=== PATIENT | female | born 2005 | race Caucasian/White ===

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

== ENCOUNTER 2025-07-01 04:20 | Emergency (ER) | payer BC, SELFPAY ==
[2025-07-01] VITALS (8 sets, daily range): BP systolic 109–141; BP diastolic 67–93; PULSE 61–78; RESP 16–23; TEMP 36.6–36.8; O2SAT 98–100
--- NOTE | ~2025-07-01 | CT_ITS ---
EXAMINATION: CT brain wo con COMPARISON: None HISTORY: headahce, numbness TECHNIQUE: Axial images were obtained through the brain without IV contrast. CT scan performed using dose optimization techniques including the following automated exposure control; adjustment of mA and/or kV; use of iterative reconstruction technique. Automatic exposure control was used to reduce radiation dose. Permanent radiation dose record is archived to PACS. FINDINGS: No acute infarct or parenchymal hemorrhage. No abnormal mass or mass effect. No midline shift. No extra-axial fluid collections. No hydrocephalus. . Mastoid air cells unremarkable. Sinuses and orbits unremarkable. No acute fracture. No significant facial or scalp soft tissue swelling evident. No radiopaque foreign body is seen. Impression: 1.No acute intracranial abnormality. Reviewed, dictated and finalized at location A. Impression: 1.No acute intracranial abnormality.
[2025-07-01 04:49] LABS: Hematocrit 44.5 % (37.0-47.0); Hemoglobin 14.7 g/dL (12.0-15.0); Immature Granulocyte Percent A 0.2 % (0-0.5); Lymphocytes Absolute Auto 3.05 K/mm3 (0.9-3.2); Mean Corpuscular HGB Conc 33.0 g/dl (32-36); Mean Corpuscular Hemoglobin 29.5 pg (26-34); Mean Corpuscular Volume 89.4 fl (80-100); Nucleated Red Blood Cells Absolute Auto 0.000 K/mm3 (0.0-0.012); Nucleated Red Blood Cells Perc 0.0 % (0.0-0.2); Platelet Count Result 300 k/mm3 (150-375); Red Blood Count 4.98 M/mm3 (4.2-5.4); White Blood Count 8.8 K/mm3 (4.5-10.0)
[2025-07-01 04:59] LABS: SPREG INTERNAL CONTROL Positive; Serum Qual hCG Negative
[2025-07-01 05:00] LABS: Alanine Aminotransferase 17 U/L (6-35); Albumin Level 4.9 g/dL (3.5-5.1); Alkaline Phosphatase 108 U/L (38-126); Anion Gap 11 mmol/L (4-12); Aspartate Amino Transferase 31 U/L (14-36); Bilirubin,Total 0.8 mg/dL (0.2-1.3); Blood Urea Nitrogen 22 mg/dL (7-17); Calcium 9.7 mg/dL (8.4-10.2); Carbon Dioxide 26 mmol/L (22-30); Chloride 104 mmol/L (98-107); Estimated CRCL calculation 76 ml/min; Estimated Glomerular Filt Rate > 60; Glucose 82 mg/dL (65-110); Magnesium 2.1 mg/dL (1.6-2.3); Potassium 3.7 mmol/L (3.4-5.0); Sodium 141 mmol/L (137-145); Total Protein 9.0 g/dL (6.3-8.2)
--- OUTSIDE RECORDS SUMMARY | 2025-07-01 05:24 | XMS_ITS | Clinical Summary ---
Author Organization [facility] Address [address] [place] [address] Care Team Providers Care Sheet Metal Helper Name Role Phone Alyssa Kim MD Primary Care Provider [phone] Allergies No known active allergies Medications rimegepant 75 mg Dissolve 1 tablet (75 mg total) in mouth 01/28/2022 Active cholecalciferol 2,000 unit Tab Take 1 tablet (2,000 Units total) by mouth once daily Active Active Problems Problem Noted Date Diagnosed Date PCOS (polycystic ovarian syndrome) 03/21/2024 Migraine with aura 04/14/2023 Palpitations 06/30/2018 Trivial Aortic insufficiency 06/30/2018 Family History Medical History Relation Name Comments Heart defect Cousin Relation Name Status Comments Cousin Social History Tobacco Use Types Packs/Day Years Used Date Smoking Tobacco: Never Smokeless Tobacco: Never Tobacco Cessation:Counseling Given: Not Answered Alcohol Use Standard Drinks/Week Comments Not Currently 0 (1 standard drink = 0.6 oz pur e alcohol) Depression Answer Date Recorded PHQ-9 Score 2 04/14/2023 Comments No Sex and Gender Information Value Date Recorded Sex Assigned at Female 04/20/2023 9:12 AM EDT Legal Sex Female 6:00 AM EDT Gender Identity Female 04/20/2023 9:12 AM EDT Sexual Orientation Straight 04/20/2023 9: 12 AM EDT Primary [place] Affiliation NON-FINNISH (AND NON-FED STEFAN GNIZED FINNISH) Last Filed Vital Signs Vital Sign Reading Time Taken Comments Blood Pressure 130/74 03/18/2024 8:45 AM EDT Pulse 60 05/14/2023 1:34 PM EDT Temperature 36.3 C (97.4 F) 08/31/2020 11:18 AM EST Respiratory Rate 16 11/12/2021 1:45 PM EST Oxygen Saturation 100% 11/12/2021 1:45 PM EST Inhaled Oxygen Concentration - - Weight 59.9 kg (132 lb) 03/18/2024 8:45 AM EDT Height 157.5 cm (5' 2) 03/18/2024 8:45 AM EDT Body Mass Index 24.14 03/18/2024 8:45 AM EDT Plan of Treatment Health Maintenance Due Date Last Done Comments HEPATITIS C SCREENING 2004 HIV SCREENING One Time Screening Age 18-64 2004 2-4 week WCE 2004 2 month WCE 2004 4 month WCE 2004 6 month WCE 2004 9 month WCE 2004 12 month WCE 2004 15 month WCE 04/01/2005 18 month WCE 07/02/2005 24 month WCE 12/30/2005 30 month WCE 07/02/2006 3 year WCE 12/30/2006 4 year WCE 12/31/2007 5 year WCE 12/30/2008 6 year WCE 12/30/2009 7 year WCE 12/30/2010 8 year WCE 12/02/2011 9 year WCE 12/02/2012 10 year WCE 12/02/2013 11 year WCE 12/02/2014 12 year WCE 12/02/2015 13 year WCE 12/02/2016 14 year WCE 12/02/2017 15 year WCE 12/02/2018 CHLAMYDIA SCREENING 01/30/2019 HPV VACCINES (1 - 3-dose series) 01/30/2019 16 year WCE 12/02/2019 17 year WCE 12/02/2020 17 year Well Adult 12/02/2021 19 year Well Adult 12/02/2022 20 year Well Adult 12/02/2023 Depression Screening Yearly Rolling Year 04/14/2024 04/14/2023 COVID-19 Vaccine ( season) 2024 02/14/2021, 01/24/2021 20 year Well Adult 12/02/2024 Well Exam to 20y 12/02/2024 PAP SMEAR 01/30/2025 DTAP/TDAP/TD VACCINES (7 - Td or Tdap) 02/13/2025 02/13/2015, 02/14/2008, 05/12/2005, Additional history exists INFLUENZA VACCINE SEQ (#1) 07/19/202507/24, 09/13/2022, 09/11/2021, Additional history exists PNEUMOCOCCAL AGE 0-49 Aged Out 05/12/2005 , 2004, 2004, Additional history exists No longer eligible based on patient's age to complete this topic Insurance [employer] [place] Care Teams Sheet Metal Helper Relationship Specialty Start Date End Date Alyssa Kim MD [id number] [place] [address] PCP - General Pediatrics 08/16/13
[2025-07-01] MEDS: ACETAMINOPHEN 500 MG TABLET 1000 MG PO (05:36)
[2025-07-01] MEDS: SODIUM CHLORIDE 0.9% IV 1,000 ML 999 ML IV CONT (05:36)
[2025-07-01] MEDS: METOCLOPRAMIDE HCL INJ 10 MG/2 ML VIAL IV PUSH (05:37)
--- NOTE | 2025-07-01 06:33 | ED_ITS ---
HPI - General Adult General Chief complaint: Neuro Symptoms/Deficit <Patrick Velázquez MD - Last Filed: 07/01/25 07:07> Stated complaint: stroke like symptoms <Patrick Velázquez MD - Last Filed: 07/01/25 07:07> Time Seen by Provider: 07/01/25 04:28 <Patrick Velázquez MD - Last Filed: 07/01/25 07:07> History of Present Illness HPI narrative: Patient is a 20-year-old female who presents emergency department this evening complaining of paresthesias to her left extending from her hand to her left elbow not following any neurological distribution. Patient admits that she does have a history of migraines and does take Imitrex for her migraine headaches. States that her headache started at 8:00 p.m. and normally with her medications at home they usually resolve within 2 hours but states that this headache persisted. States that she also felt some tingling to her face but otherwise denies any focal weakness, numbness and tingling. No sudden worse headache of her life sensation, the headache did progressively get worse throughout the night within the last 8 hours. <Patrick Velázquez MD - Last Filed: 07/01/25 07:07> Related Data Allergies/adverse reactions: Allergies Allergy/AdvReac Type Severity Reaction Status Date / Time sumatriptan (From Imitrex) Allergy Unknown Unknown Verified 08/18/23 01:09 <Patrick Velázquez MD - Last Filed: 07/01/25 07:07> Review of Systems 2 Review of Systems: All systems are reviewed and are negative unless stated otherwise in the HPI. <Patrick Velázquez MD - Last Filed: 07/01/25 07:07> Exam 2 Narrative: General: Alert, awake, afebrile, in no acute distress. HEENT: PERRL, no rhinorrhea, no post nasal drip, oropharynx clear. Neck: Trachea midline, no JVD, no lymphadenopathy. Cardiovascular: Regular rate and rhythm, no murmurs, rubs or gallops, no peripheral edema. Respiratory: Clear to auscultation bilaterally, no tachypnea, no wheezing, no rhonchi, no rubs, no respiratory distress. Abdomen: Soft, nontender, nondistended, no rebound, no guarding, no peritoneal signs. Musculoskeletal: No joint swelling or deformity, normal muscle tone. Skin: No rashes or petechia, no signs of infection. Psychiatric: Alert and oriented, normal behavior and judgment for situation. Neurological: Alert and oriented to person, place, and time. Follows all commands. No focal deficits, speech is clear and fluent. <Patrick Velázquez MD - Last Filed: 07/01/25 07:07> Course Vital Signs Vital signs: Vital Signs Pulse Rate 61 07/01/25 04:20 Respiratory Rate 16 07/01/25 04:20 Blood Pressure 141/93 H 07/01/25 04:20 Pulse Oximetry 100 07/01/25 04:20 Temperature 98.2 F 07/01/25 07:39 Pulse Rate 71 07/01/25 07:39 Respiratory Rate 17 07/01/25 07:39 Blood Pressure 117/67 07/01/25 07:39 Pulse Oximetry 98 07/01/25 07:39 <Patrick Velázquez MD - Last Filed: 07/01/25 07:07> Vital Signs Pulse Rate 61 07/01/25 04:20 Respiratory Rate 16 07/01/25 04:20 Blood Pressure 141/93 H 07/01/25 04:20 Pulse Oximetry 100 07/01/25 04:20 Temperature 98.2 F 07/01/25 07:39 Pulse Rate 71 07/01/25 07:39 Respiratory Rate 17 07/01/25 07:39 Blood Pressure 117/67 07/01/25 07:39 Pulse Oximetry 98 07/01/25 07:39 <Jaimie Jiang MD - Last Filed: 07/01/25 08:40> Medical Decision Making MDM Narrative Medical decision making narrative: The patient was evaluated by myself in the emergency department. History is obtained from patient who is an independent historian and physical exam was performed. External medical records were reviewed at this time. IV was established and pertinent tests were ordered. Patient was administered 1 L IV fluid bolus with normal saline, 10 mg IV Reglan, 25 mg of IV Benadryl and 1 g of oral Tylenol for migraine headache at this time. Laboratory results obtained revealing no acute process. Imaging studies obtained included CT brain without IV contrast which is currently pending. Patient was signed out to AM ED physician pending remainder of the workup. <Patrick Velázquez MD - Last Filed: 07/01/25 07:07> The patient was evaluated by myself in the emergency department. History is obtained from patient who is an independent historian and physical exam was performed. External medical records were reviewed at this time. IV was established and pertinent tests were ordered. Patient was administered 1 L IV fluid bolus with normal saline, 10 mg IV Reglan, 25 mg of IV Benadryl and 1 g of oral Tylenol for migraine headache at this time. Laboratory results obtained revealing no acute process. Imaging studies obtained included CT brain without IV contrast which is currently pending. Patient was signed out to AM ED physician pending remainder of the workup. ELISA Patient signed out to me at [address] brain. Results as below. Patient is reassessed at 7:35 a.m. and states that her headache persists. Will supplement the medication she had already been receiving with IV ketorolac and 1 g magnesium. Patient reassesed at 8:30. She reports when she presented her headache was 10/10 in severity, than 7/10 severity upon my reassessment and now 4/10 in severity. Her magnesium is still infusing although she does report she is feeling better. We discussed the use of a 1 time dose of steroid to reduce the occurrence of rebound/bounce-back headache. Discussed dexamethasone versus prednisone and she states historically prednisone has helped. She reports that she had migraine approximately 2 weeks ago. Patient states she is on Neurtec, prescribed by her neurologist back home in [place]. 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 I recommended that she not play today and that she call her neurologist to discuss possible changing medication and or other workup or interventions and trying to schedule appointment for when she is next home. She verifies understanding and is in agreement. Otherwise stable for discharge. <Jaimie Jiang MD - Last Filed: 07/01/25 08:40> Vital Signs Vital Signs: Vital Signs Pulse Rate 61 07/01/25 04:20 Respiratory Rate 16 07/01/25 04:20 Blood Pressure 141/93 H 07/01/25 04:20 Pulse Oximetry 100 07/01/25 04:20 Temperature 98.2 F 07/01/25 07:39 Pulse Rate 71 07/01/25 07:39 Respiratory Rate 17 07/01/25 07:39 Blood Pressure 117/67 07/01/25 07:39 Pulse Oximetry 98 07/01/25 07:39 <Patrick Velázquez MD - Last Filed: 07/01/25 07:07> Vital Signs Pulse Rate 61 07/01/25 04:20 Respiratory Rate 16 07/01/25 04:20 Blood Pressure 141/93 H 07/01/25 04:20 Pulse Oximetry 100 07/01/25 04:20 Temperature 98.2 F 07/01/25 07:39 Pulse Rate 71 07/01/25 07:39 Respiratory Rate 17 07/01/25 07:39 Blood Pressure 117/67 07/01/25 07:39 Pulse Oximetry 98 07/01/25 07:39 <Jaimie Jiang MD - Last Filed: 07/01/25 08:40> Lab Data Result diagrams: 07/01/25 04:44 07/01/25 04:44 <Patrick Velázquez MD - Last Filed: 07/01/25 07:07> Labs: Lab Results 07/01/25 Range/Units 04:44 WBC 8.8 (4.5-10.0) K/mm3 RBC 4.98 (4.2-5.4) M/mm3 Hgb 14.7 (12.0-15.0) g/dL Hct 44.5 (37.0-47.0) % MCV 89.4 (80-100) fl MCH 29.5 (26-34) pg MCHC 33.0 (32-36) g/dl RDW 12.4 (11.5-14.5) % Plt Count 300 (150-375) k/mm3 MPV 8.5 (7.4-10.4) fl Immature Gran % (Auto) 0.2 (0-0.5) % Neut % (Auto) 52.7 (45.5-73.1) % Lymph % (Auto) 34.9 (18.3-44.2) % [place] % (Auto) 10.3 H (2.6-8.5) % Eos % (Auto) 1.6 (0-4.4) % Baso % (Auto) 0.3 (0.2-1.2) % Lymph # (Auto) 3.05 (0.9-3.2) K/mm3 [place] # (Auto) 0.9 H (0.1-0.6) K/mm3 Eos # (Auto) 0.1 (0-0.3) K/mm3 Baso # (Auto) 0.0 (0.0-0.1) K/mm3 Abs Immat Gran (auto) 0.02 (0.00-0.031) K/mm3 Absolute Neuts (auto) 4.6 (1.3-6.7) K/mm3 Absolute Nucleated RBC 0.000 (0.0-0.012) K/mm3 Nucleated RBC % 0.0 (0.0-0.2) % Sodium 141 (137-145) mmol/L Potassium 3.7 (3.4-5.0) mmol/L Chloride 104 (98-107) mmol/L Carbon Dioxide 26 (22-30) mmol/L Anion Gap 11 (4-12) mmol/L BUN 22 H (7-17) mg/dL Creatinine 0.81 (0.7-1.0) mg/dL Estim Creat Clear Calc 76 ml/min Estimated GFR > 60 (59 - ) Glucose 82 (65-110) mg/dL Calcium 9.7 (8.4-10.2) mg/dL Magnesium 2.1 (1.6-2.3) mg/dL Total Bilirubin 0.8 (0.2-1.3) mg/dL AST 31 (14-36) U/L ALT 17 (6-35) U/L Alkaline Phosphatase 108 (38-126) U/L Total Protein 9.0 H (6.3-8.2) g/dL Albumin 4.9 (3.5-5.1) g/dL Serum HCG, Qual Negative <Patrick Velázquez MD - Last Filed: 07/01/25 07:07> Lab Results 07/01/25 Range/Units 04:44 WBC 8.8 (4.5-10.0) K/mm3 RBC 4.98 (4.2-5.4) M/mm3 Hgb 14.7 (12.0-15.0) g/dL Hct 44.5 (37.0-47.0) % MCV 89.4 (80-100) fl MCH 29.5 (26-34) pg MCHC 33.0 (32-36) g/dl RDW 12.4 (11.5-14.5) % Plt Count 300 (150-375) k/mm3 MPV 8.5 (7.4-10.4) fl Immature Gran % (Auto) 0.2 (0-0.5) % Neut % (Auto) 52.7 (45.5-73.1) % Lymph % (Auto) 34.9 (18.3-44.2) % [place] % (Auto) 10.3 H (2.6-8.5) % Eos % (Auto) 1.6 (0-4.4) % Baso % (Auto) 0.3 (0.2-1.2) % Lymph # (Auto) 3.05 (0.9-3.2) K/mm3 [place] # (Auto) 0.9 H (0.1-0.6) K/mm3 Eos # (Auto) 0.1 (0-0.3) K/mm3 Baso # (Auto) 0.0 (0.0-0.1) K/mm3 Abs Immat Gran (auto) 0.02 (0.00-0.031) K/mm3 Absolute Neuts (auto) 4.6 (1.3-6.7) K/mm3 Absolute Nucleated RBC 0.000 (0.0-0.012) K/mm3 Nucleated RBC % 0.0 (0.0-0.2) % Sodium 141 (137-145) mmol/L Potassium 3.7 (3.4-5.0) mmol/L Chloride 104 (98-107) mmol/L Carbon Dioxide 26 (22-30) mmol/L Anion Gap 11 (4-12) mmol/L BUN 22 H (7-17) mg/dL Creatinine 0.81 (0.7-1.0) mg/dL Estim Creat Clear Calc 76 ml/min Estimated GFR > 60 (59 - ) Glucose 82 (65-110) mg/dL Calcium 9.7 (8.4-10.2) mg/dL Magnesium 2.1 (1.6-2.3) mg/dL Total Bilirubin 0.8 (0.2-1.3) mg/dL AST 31 (14-36) U/L ALT 17 (6-35) U/L Alkaline Phosphatase 108 (38-126) U/L Total Protein 9.0 H (6.3-8.2) g/dL Albumin 4.9 (3.5-5.1) g/dL Serum HCG, Qual Negative <Jaimie Jiang MD - Last Filed: 07/01/25 08:40> Imaging Data Radiologist's impression: CT brain stat rad: No evidence of acute intracranial pathology. No comparisons. No incidental findings. <Jaimie Jiang MD - Last Filed: 07/01/25 08:40> Discharge Plan Discharge Clinical Impression: Cephalalgia, Paresthesia <Patrick Velázquez MD - Last Filed: 07/01/25 07:07> Patient Disposition: Home <Patrick Velázquez MD - Last Filed: 07/01/25 07:07> Condition: Stable <Patrick Velázquez MD - Last Filed: 07/01/25 07:07> Instructions: Antibiotic Form, Migraine Headache (ED), Acute Headache (ED), Paresthesia (ED) <Patrick Velázquez MD - Last Filed: 07/01/25 07:07> Additional Instructions: Continue to take your medications as prescribed and keep a log of your headaches. Call to make a follow-up appointment with your neurologist (back home in [place]) and see if there is further workup and/or medication changes recommended in the interim. Rest and maintain your hydration. Return to the emergency department with any new or worsening symptoms. If you are in need of a neurologist will in this area, the name of 1 is listed below. Acetaminophen/Tylenol (maximum 3000 mg per day) is safe to take with NSAIDs (ibuprofen/Motrin) for pain relief. <Patrick Velázquez MD - Last Filed: 07/01/25 07:07> Patient Language: Australian <Patrick Velázquez MD - Last Filed: 07/01/25 07:07> Prescriptions: New acetaminophen 650 mg tablet extended release 650 mg PO Q8H PRN (Reason: pain) Qty: 30 0RF ibuprofen 600 mg tablet 600 mg PO TID PRN (Reason: pain) Qty: 30 0RF <Patrick Velázquez MD - Last Filed: 07/01/25 07:07> Follow-up/Referrals: Kyleigh Bill MD [Physician, Neurology] UNKNOWN,DOCTOR [Primary Care Provider] <Patrick Velázquez MD - Last Filed: 07/01/25 07:07> Stand Alone Forms: Work/School Release IP <Patrick Velázquez MD - Last Filed: 07/01/25 07:07> Time of Disposition: 08:38 <Patrick Velázquez MD - Last Filed: 07/01/25 07:07> 08:38 <Jaimie Jiang MD - Last Filed: 07/01/25 08:40>
[2025-07-01] MEDS: KETOROLAC 30 MG/ML VIAL (*BKC) IV PUSH (08:01)
[2025-07-01] MEDS: MAGNESIUM SULF 1 GM/D5W 100 ML 1 GM/100 ML BAG IVPB (08:03)
== END 2025-07-01 09:22 | disposition home or self-care (01) ==
PROVIDERS: Emergency Medicine; Emergency Provider Student in an Organized Health Care Education/Training Program
DX: R51.9 Headache, unspecified (principal); R20.2 Paresthesia of skin
CPT/HCPCS: 36415; 70450; 80053; 83735; 84703; 85025; 96361; 96365; 96375; 99284; A9270; J1200; J1885; J2765; J3475; J7030; J7512